=== PATIENT | female | born 2005 | race Caucasian/White ===

== ENCOUNTER 2024-11-23 14:14 | Emergency (ER) | payer OTHER, SELFPAY ==
[2024-11-23 14:15] VITALS: BP 146/69; PULSE 72; RESP 16; TEMP 36.6; O2SAT 100; BMI 38.1
--- NOTE | 2024-11-23 15:10 | RAD_ITS ---
PROCEDURE: ANKLE MIN 3 VIEWS REASON FOR EXAM: Injury. Fell down stairs. TECHNIQUE: Four view right ankle COMPARISON: None RAD/Ankle min 3 Views IMPRESSION: On the lateral view, normal contour of the Achilles tendon is seen. No ankle joint effusion is noted. Satisfactory osseous alignment is seen throughout. No fracture site is evident. If clinical concern persists, short-term follow-up imaging may be obtained to r ule out a currently occult fracture. Reading Location: [id number]
--- NOTE | 2024-11-23 18:27 | ED.VIS.LOWEX ---
HPI History of Present Illness Chief Complaint: Lower Extremity Injury Informant: patient Narrative Narrative: Patient is a 19-year-old female presenting with right foot injury. Patient states she fell on the stairs missing the last 2 steps. She notes initially she had a hard time moving her fourth and fifth toes but that is improved. She did take ibuprofen prior to arrival. She denies any associate numbness or tingling. Denies any other injuries from the fall. Not on any blood thinners. No other complaints or concerns reported at this time PFS PFS Allergy/AdvReac Type Severity Reaction Status Date / Time No Known Allergies Allergy Verified 11/23/24 14:16 Social History Smoking Status: Unknown if ever smoked ROS ROS ED Constitutional Constitutional ED: Denies chills or fever(s) Gastrointestinal Gastrointestinal: Denies vomiting Musculoskeletal Musculoskeletal: Reports other Details: Right foot and ankle pain Integumentary Reports other Details: Bruising to her right foot Neurologic Neurologic: Denies paresthesias or weakness EXAM Physical Exam Const Vital Signs: 11/23/24 14:15 Temperature 98 F Temperature Source Oral Pulse Rate 72 Respiratory Rate 16 Blood Pressure 146/69 H Blood Pressure Mean 94 Pulse Ox 100 Oxygen Delivery Method Room Air Positive well nourished and well developed General Appearance ED: well developed and NAD Resp normal respiratory effort Cardio regular rate and regular rhythm Cardio Narrative: 2+ DP pulses Extremity Extremity Narrative: No obvious deformity. Normal right knee. No fibular head tenderness. Normal Walker test. Compartments are soft of the calf. Mild tense palpation over the right lateral malleolus but no deformity of the ankle appreciated. She has tenderness palpation over the proximal fifth metatarsal with associated bruising. Again no deformity of the foot. Able to wiggle her toes. Neuro oriented x3, moves all extremities and no sensory deficits noted Sensorium / Orientation: alert Motor Exam: Negative for general weakness Psych mental status grossly normal Skin Skin Narrative: Ecchymosis to the right foot most pronounced over the fifth metatarsal head MDM MDM MDM Narrative Medical decision making narrative: Patient evaluated for right ankle and foot pain after fall today. Protocol ankle x-ray obtained which did not show any acute fracture. Patient states her pain is controlled she is little better after taking ibuprofen. On exam she has tenderness over the fifth metatarsal head my concern is for possible metatarsal fracture. Will add on a foot x-ray. Left foot x-ray viewed by myself does not show any acute fracture. Will be given an air stirrup and treated as an ankle sprain. Counseled on RICE therapy. Given return precautions. Discharged home in stable condition. Of note patient does not want a wait for formal read. Will contact her if there is a discrepancy. Radiography Diagnostic Testing: Clinical Impression(s) from Imaging Studies Ankle X-Ray 11/23/24 15:10 IMPRESSION: On the lateral view, normal contour of the Achilles tendon is seen. No ankle joint effusion is noted. Satisfactory osseous alignment is seen throughout. No fracture site is evident. If clinical concern persists, short-term follow-up imaging may be obtained to rule out a currently occult fracture. Reading Location: [address] Foot X-Ray 11/23/24 18:50 IMPRESSION: 1. Soft tissue swelling along the right medial foot/ankle. Correlation with point tenderness recommended. 2. No visible fracture. If clinical concern persists, short-term follow-up imaging may be obtained to rule out currently occult fracture in 7-10 days. Reading Location: [facility] Discharge Plan Triage Chief Complaint: Lower Extremity Injury ED Provider: Peg Muñoz Dx/Rx/DC Orders Clinical Impression: Right ankle sprain Instructions: ED Ankle Sprain (Adult) Stand Alone Forms: ED Work / School Excuse Primary Care Provider: Care Physician,No Primary Referrals: Dc Lorenzana MD [Med Staff - Active Staff] - Care Physician,No Primary [Primary Care Provider] - Activity Restrictions/Additional Instructions: Elevate the foot, ice and wear stirrup. Take ibuprofen as needed for pain and swelling. If is not improving please follow-up with orthopedics. You been given referral. I do not appreciate any foot fracture and there is no broken bone noted on the x-ray. If her symptoms persist you might require repeat x-ray in 7 to 10 days. Print Language: Serbian Disposition Disposition: Home, Self Care Discharge Date/Time: 11/23/24 19:40
--- NOTE | 2024-11-23 18:50 | RAD_ITS ---
PROCEDURE: FOOT MIN 3 VIEWS RIGHT REASON FOR EXAM: 19-year-old male, injury/pain, fell down stairs. TECHNIQUE: Three views of the right foot. COMPARISON: Same-day right ankle radiographs. FINDINGS: RIGHT FOOT: No visible fracture. No suspicious bone lesion. Normal alignment. Soft tissue swelling along the right medial foot/ankle. RAD/Foot min 3 Views IMPRESSION: 1. Soft tissue swelling along the right medial foot/ankle. Correlation with po int tenderness recommended. 2. No visible fracture. If clinical concern persists, short-term follow-up shanae ging may be obtained to rule out currently occult fracture in 7-10 days. Reading Location: [id number]
== END 2024-11-23 19:40 | disposition home or self-care (01) ==
PROVIDERS: Emergency Provider Emergency Medicine; Visit Provider Emergency Medicine
DX: S93.401A Sprain of unspecified ligament of right ankle, initial encounter (principal); W10.9XXA Fall (on) (from) unspecified stairs and steps, initial encounter
CPT/HCPCS: 73610; 73630; 99283